=== PATIENT | female | born 1975 | race Caucasian/White ===

== ENCOUNTER 2017-07-02 09:04 | Inpatient (IN) ==
[2017-07-02 10:13] LABS: Basophils % 0.4 % (0.0-0.8); Eosinophils # 0.1 10*3/uL (0.0-0.87); Eosinophils % 0.9 % (0.00-10.9); Hematocrit 19.6 VOL% (35.7-47.0); Immature Granulocytes % 4.6 %; Immature Granulocytes Absolute 0.35 #; Lymphocytes # 2.3 10*3/uL (1.4-4.0); Lymphocytes % 30.2 % (21.3-54.2); Mean Corpuscular HGB Conc 31.6 GM/DL (32-36); Mean Corpuscular Hemoglobin 28 PG (27-34); Mean Corpuscular Volume 89.5 FL (87-102); Monocytes # 0.4 10*3/uL (0.11-0.8); NRBC # 0.53 10*3/uL; Neutrophils # 4.4 10*3/uL (1.4-7.4); Neutrophils % 58.9 % (38.7-73.9); Platelet Count 223 T/CUMM (130-400); Red Blood Count 2.19 MC/CUMM (3.8-5.5); Red Cell Distribution Width 17.2 % (9.3-17.3); White Blood Count 7.5 T/CUMM (4-12)
[2017-07-02 10:19] LABS: Hemoglobin 6.2 GM/DL (12.0-16.0)
[2017-07-02 10:29] LABS: PT Patient Result 10.5 SECS; Partial Thromboplastin Time 23.1 SECS (0-40)
[2017-07-02 10:39] LABS: Apearance,Urine Slightly Hazy (Clear); Bilirubin,Urine Negative (Negative); Blood, Urine Large mg/dL (Negative); Glucose,Urine (UA) 50 mg/dL (Negative); Ketones,Urine 5 mg/dL (Negative); Mucus,Urine Occasional /LPF (Occasional); Nitrite,Urine Negative (Negative); Protein,Urine 100 MG/DL; RBC,Urine 2435 /HPF (0-4); Squamous Epithelial Cell,Urine Occasional /HPF (0-10); Urine Color Yellow (Yellow); Urine Specific Gravity 1.023 (1.001-1.035); Urine Urobilinogen < 2.0 EU/DL (0.2-1.0)
[2017-07-02 10:53] LABS: Free T4 (Free Thyroxine) 0.97 NG/DL (0.76-1.46); Thyroid Stimulating Hormone 4.66 uIU/ml (0.358-3.74)
[2017-07-02 11:00] LABS: Albumin 3.5 G/DL (3.4-5.0); Calcium 8.1 MG/DL (8.5-10.1); Total Protein 6.5 G/DL (6.4-8.3)
[2017-07-02] MEDS ORDERED: SODIUM CHLORIDE 0.9% 1,000 ML IV STA (11:00)
[2017-07-02 11:10] LABS: % Iron Saturation 8.5 % (18-50); Ferritin 48.4 ng/ml (8-252)
[2017-07-02 11:22] LABS: Folate 11.6 NG/ML (5.4-24.0)
[2017-07-02] MEDS: SODIUM CHLORIDE 0.9% 1,000 ML IV SCH (13:05)
[2017-07-02] MEDS ORDERED: ACETAMINOPHEN 325 MG TABLET PO PRN (13:05)
[2017-07-02] MEDS ORDERED: SODIUM CHLORIDE 0.9% 250 ML IV PRN ×2 (13:05→14:35)
[2017-07-02] MEDS ORDERED: ONDANSETRON 4 MG/2 ML VIAL IV PRN (13:05)
[2017-07-02] MEDS: INSULIN LISPRO 100 UNIT/ML SUBCUT SCH (21:47)
[2017-07-02] MEDS: DOCUSATE SODIUM 100 MG CAPSULE PO SCH (21:48)
[2017-07-02 22:38] LABS: Hematocrit 24.7 VOL% (35.7-47.0); Hemoglobin 8.3 GM/DL (12.0-16.0)
[2017-07-03 00:43] LABS: Hematocrit 23.6 VOL% (35.7-47.0); Hemoglobin 7.8 GM/DL (12.0-16.0)
[2017-07-03] MEDS: SODIUM CHLORIDE 0.9% 1,000 ML IV SCH ×3 (01:08→14:20)
[2017-07-03 05:09] LABS: Basophils % 0.4 % (0.0-0.8); Eosinophils # 0.1 10*3/uL (0.0-0.87); Eosinophils % 0.9 % (0.00-10.9); Hematocrit 22.5 VOL% (35.7-47.0); Hemoglobin 7.2 GM/DL (12.0-16.0); Immature Granulocytes % 4.1 %; Immature Granulocytes Absolute 0.37 #; Lymphocytes # 2.8 10*3/uL (1.4-4.0); Lymphocytes % 30.7 % (21.3-54.2); Mean Corpuscular Hemoglobin 29 PG (27-34); Mean Corpuscular Volume 88.9 FL (87-102); Mean Platelet Volume 10.1 FL (9.6-12.0); Monocytes # 0.5 10*3/uL (0.11-0.8); Monocytes % 5.2 % (1.7-12.7); NRBC # 0.53 10*3/uL; Neutrophils # 5.3 10*3/uL (1.4-7.4); Neutrophils % 58.7 % (38.7-73.9); Platelet Count 219 T/CUMM (130-400); Red Blood Count 2.53 MC/CUMM (3.8-5.5); Red Cell Distribution Width 16.5 % (9.3-17.3); White Blood Count 9.1 T/CUMM (4-12)
[2017-07-03 05:42] LABS: Calcium 7.7 MG/DL (8.5-10.1); Magnesium 2.4 MG/DL (1.8-2.4); Osmolality,Calculated 276.8 MOS/KG (273-304); Potassium 4.6 MMOL/L (3.5-5.1)
[2017-07-03] MEDS ORDERED: sitaGLIPtin 25 MG TABLET PO SCH (09:00)
[2017-07-03] MEDS: DOCUSATE SODIUM 100 MG CAPSULE PO SCH ×3 (10:16→21:42)
[2017-07-03] MEDS: metFORMIN 500 MG TABLET PO SCH ×2 (10:16→13:43)
[2017-07-03] MEDS: PRAVASTATIN 40 MG TABLET PO SCH ×2 (10:17→13:43)
[2017-07-03] MEDS: INSULIN LISPRO 100 UNIT/ML SUBCUT SCH ×4 (10:17→21:42)
[2017-07-03] MEDS: ESCITALOPRAM 10 MG TABLET PO SCH ×2 (10:17→13:43)
[2017-07-03] MEDS: PANTOPRAZOLE 40 MG TABLET PO SCH ×2 (10:18→13:43)
[2017-07-03] MEDS ORDERED: medroxyPROGESTERone 5 MG TABLET PO SCH (10:30)
[2017-07-03] MEDS: LOSARTAN 25 MG TABLET PO SCH (13:43)
[2017-07-03] MEDS: FERROUS SULFATE 325 MG TABLET PO SCH (13:43)
[2017-07-03] MEDS: sitaGLIPtin 25 MG TABLET PO SCH (14:31)
[2017-07-03] MEDS: ESTROGENS(CONJ) 25 MG VIAL IV SCH (17:34)
[2017-07-03 17:58] LABS: Hematocrit 25.7 VOL% (35.7-47.0); Hemoglobin 8.5 GM/DL (12.0-16.0)
[2017-07-04] MEDS: SODIUM CHLORIDE 0.9% 1,000 ML IV SCH ×6 (00:13→21:00)
[2017-07-04] MEDS: ESTROGENS(CONJ) 25 MG VIAL IV SCH ×2 (00:27→07:59)
[2017-07-04 05:55] LABS: Basophils # 0.1 10*3/uL (0.0-0.2); Basophils % 0.4 % (0.0-0.8); Eosinophils % 0.1 % (0.00-10.9); Hematocrit 19.9 VOL% (35.7-47.0); Immature Granulocytes % 4.7 %; Immature Granulocytes Absolute 0.68 #; Lymphocytes # 2.2 10*3/uL (1.4-4.0); Lymphocytes % 15.5 % (21.3-54.2); Mean Corpuscular HGB Conc 32.2 GM/DL (32-36); Mean Corpuscular Hemoglobin 27 PG (27-34); Mean Corpuscular Volume 84.7 FL (87-102); Mean Platelet Volume 10.5 FL (9.6-12.0); Monocytes # 0.6 10*3/uL (0.11-0.8); Monocytes % 4.4 % (1.7-12.7); NRBC # 1.13 10*3/uL; Neutrophils # 10.8 10*3/uL (1.4-7.4); Neutrophils % 74.9 % (38.7-73.9); Platelet Count 230 T/CUMM (130-400); Red Blood Count 2.35 MC/CUMM (3.8-5.5); Red Cell Distribution Width 18.5 % (9.3-17.3); White Blood Count 14.4 T/CUMM (4-12)
[2017-07-04 06:11] LABS: Hemoglobin 6.4 GM/DL (12.0-16.0)
[2017-07-04 06:14] LABS: Giant Platelets Few; Hypochromasia 1+; Macrocytosis Slight; Ovalocytes Slight; Platelet Estimate Adequate; Polychromasia Slight
[2017-07-04 06:21] LABS: Calcium 7.4 MG/DL (8.5-10.1); Osmolality,Calculated 276.1 MOS/KG (273-304); Potassium 4.1 MMOL/L (3.5-5.1)
[2017-07-04] MEDS ORDERED: SODIUM CHLORIDE 0.9% 250 ML IV PRN (06:51)
[2017-07-04] MEDS ORDERED: medroxyPROGESTERone 5 MG TABLET PO SCH (09:00)
[2017-07-04] MEDS: LOSARTAN 25 MG TABLET PO SCH (09:51)
[2017-07-04] MEDS: metFORMIN 500 MG TABLET PO SCH (09:51)
[2017-07-04] MEDS: ESCITALOPRAM 10 MG TABLET PO SCH (09:51)
[2017-07-04] MEDS: PANTOPRAZOLE 40 MG TABLET PO SCH (09:51)
[2017-07-04] MEDS: sitaGLIPtin 25 MG TABLET PO SCH (09:51)
[2017-07-04] MEDS: PRAVASTATIN 40 MG TABLET PO SCH (09:51)
[2017-07-04] MEDS: DOCUSATE SODIUM 100 MG CAPSULE PO SCH ×2 (09:51→22:22)
[2017-07-04] MEDS: FERROUS SULFATE 325 MG TABLET PO SCH (09:51)
[2017-07-04] MEDS: INSULIN LISPRO 100 UNIT/ML SUBCUT SCH ×4 (09:52→22:22)
[2017-07-04] MEDS: medroxyPROGESTERone 5 MG TABLET PO SCH (15:07)
[2017-07-04 18:57] LABS: Hematocrit 24.1 VOL% (35.7-47.0)
[2017-07-04 18:58] LABS: Hemoglobin 8.2 GM/DL (12.0-16.0)
[2017-07-04 20:34] LABS: Hematocrit 23.7 VOL% (35.7-47.0); Hemoglobin 8.1 GM/DL (12.0-16.0)
[2017-07-05] MEDS: SODIUM CHLORIDE 0.9% 1,000 ML IV SCH ×4 (01:14→21:14)
[2017-07-05 03:10] LABS: Basophils % 0.3 % (0.0-0.8); Eosinophils % 0.2 % (0.00-10.9); Hemoglobin 7.3 GM/DL (12.0-16.0); Immature Granulocytes % 3.8 %; Immature Granulocytes Absolute 0.51 #; Lymphocytes # 2.7 10*3/uL (1.4-4.0); Lymphocytes % 19.9 % (21.3-54.2); Mean Corpuscular HGB Conc 33.2 GM/DL (32-36); Mean Corpuscular Hemoglobin 28 PG (27-34); Mean Platelet Volume 10.1 FL (9.6-12.0); Monocytes # 0.8 10*3/uL (0.11-0.8); NRBC # 1.15 10*3/uL; Neutrophils # 9.5 10*3/uL (1.4-7.4); Neutrophils % 69.8 % (38.7-73.9); Platelet Count 178 T/CUMM (130-400); Red Blood Count 2.62 MC/CUMM (3.8-5.5); Red Cell Distribution Width 18.6 % (9.3-17.3); White Blood Count 13.6 T/CUMM (4-12)
[2017-07-05 03:12] LABS: Hematocrit 22.1 VOL% (35.7-47.0); Hemoglobin 7.3 GM/DL (12.0-16.0)
[2017-07-05 03:46] LABS: Osmolality,Calculated 275.7 MOS/KG (273-304); Potassium 4.2 MMOL/L (3.5-5.1)
[2017-07-05 08:11] LABS: Hematocrit 18.4 VOL% (35.7-47.0)
[2017-07-05] MEDS ORDERED: SODIUM CHLORIDE 0.9% 250 ML IV PRN ×2 (09:44→22:52)
[2017-07-05] MEDS: DOCUSATE SODIUM 100 MG CAPSULE PO SCH ×2 (10:08→21:12)
[2017-07-05] MEDS: medroxyPROGESTERone 5 MG TABLET PO SCH (10:08)
[2017-07-05] MEDS: sitaGLIPtin 25 MG TABLET PO SCH (10:08)
[2017-07-05] MEDS: FERROUS SULFATE 325 MG TABLET PO SCH (10:08)
[2017-07-05] MEDS: metFORMIN 500 MG TABLET PO SCH (10:08)
[2017-07-05] MEDS: PRAVASTATIN 40 MG TABLET PO SCH (10:08)
[2017-07-05] MEDS: LOSARTAN 25 MG TABLET PO SCH (10:09)
[2017-07-05] MEDS: ESCITALOPRAM 10 MG TABLET PO SCH (10:09)
[2017-07-05] MEDS: PANTOPRAZOLE 40 MG TABLET PO SCH (10:10)
[2017-07-05] MEDS: INSULIN LISPRO 100 UNIT/ML SUBCUT SCH ×4 (10:10→21:11)
[2017-07-05] MEDS ORDERED: diphenhydrAMINE CAP 50 MG CAPSULE PO ONE (10:25)
[2017-07-05 20:34] LABS: Hematocrit 24.3 VOL% (35.7-47.0); Hemoglobin 8.1 GM/DL (12.0-16.0)
[2017-07-06] MEDS: TRANEXAMIC ACID IV SCH ×4 (00:19→23:53)
[2017-07-06] MEDS: SODIUM CHLORIDE 0.9% IV SCH ×4 (00:19→23:53)
[2017-07-06] MEDS: SODIUM CHLORIDE 0.9% 1,000 ML IV SCH ×3 (04:22→14:18)
[2017-07-06] MEDS: INSULIN LISPRO 100 UNIT/ML SUBCUT SCH ×4 (07:53→21:55)
[2017-07-06 08:37] LABS: Hematocrit 26.1 VOL% (35.7-47.0); Hemoglobin 8.9 GM/DL (12.0-16.0)
[2017-07-06] MEDS: sitaGLIPtin 25 MG TABLET PO SCH (08:39)
[2017-07-06] MEDS: ESCITALOPRAM 10 MG TABLET PO SCH (08:39)
[2017-07-06] MEDS: DOCUSATE SODIUM 100 MG CAPSULE PO SCH ×2 (08:39→21:54)
[2017-07-06] MEDS: metFORMIN 500 MG TABLET PO SCH (08:40)
[2017-07-06] MEDS: PRAVASTATIN 40 MG TABLET PO SCH (08:40)
[2017-07-06] MEDS: LOSARTAN 25 MG TABLET PO SCH (08:40)
[2017-07-06] MEDS: FERROUS SULFATE 325 MG TABLET PO SCH (08:40)
[2017-07-06] MEDS: PANTOPRAZOLE 40 MG TABLET PO SCH (08:40)
[2017-07-06] MEDS: medroxyPROGESTERone 5 MG TABLET PO SCH (08:46)
[2017-07-06 15:17] LABS: Hematocrit 24.8 VOL% (35.7-47.0); Hemoglobin 8.5 GM/DL (12.0-16.0)
[2017-07-07] MEDS: INSULIN LISPRO 100 UNIT/ML SUBCUT SCH ×4 (07:31→20:48)
[2017-07-07] MEDS ORDERED: CALCIUM CHLORIDE 1,000 MG in SODIUM CHLORIDE 0.9% 100 ML IV ONE (08:15)
[2017-07-07] MEDS: TRANEXAMIC ACID IV SCH ×3 (09:05→20:48)
[2017-07-07] MEDS: SODIUM CHLORIDE 0.9% IV SCH ×3 (09:05→20:48)
[2017-07-07] MEDS: metFORMIN 500 MG TABLET PO SCH (09:31)
[2017-07-07 10:25] LABS: Basophils % 0.4 % (0.0-0.8); Eosinophils # 0.1 10*3/uL (0.0-0.87); Hematocrit 22.8 VOL% (35.7-47.0); Immature Granulocytes % 2.3 %; Immature Granulocytes Absolute 0.13 #; Lymphocytes # 1.4 10*3/uL (1.4-4.0); Lymphocytes % 25.3 % (21.3-54.2); Mean Corpuscular HGB Conc 33.3 GM/DL (32-36); Mean Corpuscular Hemoglobin 29 PG (27-34); Mean Corpuscular Volume 87.7 FL (87-102); Mean Platelet Volume 10.3 FL (9.6-12.0); Monocytes # 0.4 10*3/uL (0.11-0.8); Monocytes % 6.4 % (1.7-12.7); NRBC # 0.27 10*3/uL; Neutrophils # 3.6 10*3/uL (1.4-7.4); Neutrophils % 63.6 % (38.7-73.9); Red Cell Distribution Width 16.9 % (9.3-17.3)
[2017-07-07 10:26] LABS: Hemoglobin 7.6 GM/DL (12.0-16.0); White Blood Count 5.6 T/CUMM (4-12)
[2017-07-07 10:27] LABS: Platelet Count 131 T/CUMM (130-400)
[2017-07-07] MEDS: FERROUS SULFATE 325 MG TABLET PO SCH (10:30)
[2017-07-07] MEDS: sitaGLIPtin 25 MG TABLET PO SCH (10:30)
[2017-07-07] MEDS: medroxyPROGESTERone 5 MG TABLET PO SCH (10:30)
[2017-07-07] MEDS: LOSARTAN 25 MG TABLET PO SCH (10:31)
[2017-07-07] MEDS: ESCITALOPRAM 10 MG TABLET PO SCH (10:31)
[2017-07-07] MEDS: PANTOPRAZOLE 40 MG TABLET PO SCH (10:31)
[2017-07-07] MEDS: PRAVASTATIN 40 MG TABLET PO SCH (10:31)
[2017-07-07 10:48] LABS: Calcium 7.8 MG/DL (8.5-10.1); Osmolality,Calculated 274.5 MOS/KG (273-304)
[2017-07-07] MEDS: DOCUSATE SODIUM 100 MG CAPSULE PO SCH ×2 (13:04→20:48)
[2017-07-07] MEDS: SODIUM CHLORIDE 0.9% 1,000 ML IV SCH (17:48)
[2017-07-07 20:45] LABS: Hemoglobin 9.6 GM/DL (12.0-16.0)
[2017-07-08 05:53] LABS: Basophils % 0.5 % (0.0-0.8); Eosinophils # 0.2 10*3/uL (0.0-0.87); Eosinophils % 2.9 % (0.00-10.9); Hemoglobin 8.8 GM/DL (12.0-16.0); Immature Granulocytes % 1.6 %; Lymphocytes % 32.2 % (21.3-54.2); Mean Corpuscular HGB Conc 32.6 GM/DL (32-36); Mean Corpuscular Hemoglobin 28 PG (27-34); Mean Corpuscular Volume 87.1 FL (87-102); Mean Platelet Volume 10.5 FL (9.6-12.0); Monocytes # 0.4 10*3/uL (0.11-0.8); Monocytes % 6.2 % (1.7-12.7); NRBC # 0.25 10*3/uL; Neutrophils # 3.5 10*3/uL (1.4-7.4); Neutrophils % 56.6 % (38.7-73.9); Platelet Count 135 T/CUMM (130-400); Red Cell Distribution Width 16.6 % (9.3-17.3); White Blood Count 6.2 T/CUMM (4-12)
[2017-07-08] MEDS ORDERED: ceFAZolin 2,000 MG in PREMIX 1 EACH IV ONE (06:00)
[2017-07-08] MEDS ORDERED: FAMOTIDINE 20 MG/2 ML VIAL IV ONE (06:00)
[2017-07-08] MEDS ORDERED: SCOPOLAMINE 1.5 MG PATCH TRANSDERM ONE (06:00)
[2017-07-08 06:27] LABS: Albumin 2.4 G/DL (3.4-5.0); Bilirubin,Total 1.7 MG/DL (0.2-1.0); Calcium 7.9 MG/DL (8.5-10.1); Osmolality,Calculated 277.4 MOS/KG (273-304); Potassium 4.2 MMOL/L (3.5-5.1)
[2017-07-08] MEDS: INSULIN LISPRO 100 UNIT/ML SUBCUT SCH ×4 (07:30→20:49)
[2017-07-08] MEDS ORDERED: MICROFIBRILLAR COLLAGEN POWDER 1 GM CAN TOP ONE (08:12)
[2017-07-08] MEDS: sitaGLIPtin 25 MG TABLET PO SCH (09:16)
[2017-07-08] MEDS: LOSARTAN 25 MG TABLET PO SCH (09:16)
[2017-07-08] MEDS: metFORMIN 500 MG TABLET PO SCH (09:16)
[2017-07-08] MEDS: DOCUSATE SODIUM 100 MG CAPSULE PO SCH (09:16)
[2017-07-08] MEDS: FERROUS SULFATE 325 MG TABLET PO SCH (09:16)
[2017-07-08] MEDS: PANTOPRAZOLE 40 MG TABLET PO SCH (09:19)
[2017-07-08] MEDS: medroxyPROGESTERone 5 MG TABLET PO SCH (09:19)
[2017-07-08] MEDS: PRAVASTATIN 40 MG TABLET PO SCH (09:19)
[2017-07-08] MEDS: ESCITALOPRAM 10 MG TABLET PO SCH (09:19)
[2017-07-08] MEDS: TRANEXAMIC ACID IV SCH (09:21)
[2017-07-08] MEDS: SODIUM CHLORIDE 0.9% IV SCH (09:21)
[2017-07-08] MEDS ORDERED: DOCUSATE SODIUM 100 MG CAPSULE PO PRN (10:56)
[2017-07-08] MEDS ORDERED: ACETAMINOPHEN 325 MG TABLET PO PRN (10:56)
[2017-07-08] MEDS ORDERED: BISACODYL 10 MG SUPP RECTAL PRN (10:56)
[2017-07-08] MEDS ORDERED: ONDANSETRON 4 MG/2 ML VIAL IV PRN ×2 (10:56→11:10)
[2017-07-08] MEDS ORDERED: IBUPROFEN 800 MG TABLET PO PRN (10:56)
[2017-07-08] MEDS ORDERED: DEXTROSE 50% 25 GM/50 ML VIAL IV PRN (10:56)
[2017-07-08] MEDS ORDERED: BENZOCAINE/MENTHOL LOZENGE 18/BOX PO PRN (10:56)
[2017-07-08] MEDS ORDERED: GLUCAGON 1 MG VIAL IM PRN (10:56)
[2017-07-08] MEDS ORDERED: MAGNESIUM HYDROXIDE SUSP 30 ML UDCUP PO PRN (10:56)
[2017-07-08] MEDS ORDERED: NALOXONE 0.4 MG/ML VIAL IV PRN (11:01)
[2017-07-08] MEDS ORDERED: HYDROmorphone 2 MG/1 ML VIAL IV PRN (11:10)
[2017-07-08] MEDS ORDERED: PROPOFOL 200 MG/20 ML VIAL IV ONE (11:11)
[2017-07-08] MEDS ORDERED: ACETAMINOPHEN 1,000 MG/100 ML VIAL IV ONE (11:12)
[2017-07-08] MEDS ORDERED: ONDANSETRON 4 MG/2 ML VIAL ONE (11:12)
[2017-07-08] MEDS ORDERED: NEOSTIGMINE 10 MG/10 ML VIAL ONE (11:12)
[2017-07-08] MEDS ORDERED: HYDROmorphone 2 MG/1 ML VIAL ONE (11:12)
[2017-07-08] MEDS ORDERED: ePHEDrine 50 MG/ML AMP ONE (11:12)
[2017-07-08] MEDS ORDERED: fentaNYL 100 MCG/2 ML VIAL ONE (11:12)
[2017-07-08] MEDS ORDERED: GLYCOPYRROLATE 0.4 MG/2 ML VIAL ONE (11:12)
[2017-07-08] MEDS ORDERED: MIDAZOLAM 2 MG/2 ML VIAL ONE (11:12)
[2017-07-08] MEDS ORDERED: LACTATED RINGERS 1,000 ML IV ONE (11:13)
[2017-07-08] MEDS ORDERED: ROCURONIUM 100 MG/10 ML VIAL IV ONE (11:13)
[2017-07-08] MEDS ORDERED: SODIUM CHLORIDE 0.9% 1,000 ML IV ONE (11:13)
[2017-07-08] MEDS ORDERED: SUCCINYLCHOLINE 200 MG/10 ML VIAL ONE (11:13)
[2017-07-08] MEDS ORDERED: HYDROmorphone PCA 30 MG/30 ML SYRINGE IV ONE (11:16)
[2017-07-08] MEDS ORDERED: LACTATED RINGERS 1,000 ML IV SCH (11:30)
[2017-07-08] MEDS ORDERED: HYDROmorphone PCA 30 MG/30 ML SYRINGE IV SCH (11:30)
[2017-07-08 11:49] LABS: Apearance,Urine CLEAR (Clear); Bilirubin,Urine Negative (Negative); Blood, Urine Negative (Negative); Glucose,Urine (UA) Negative (Negative); Ketones,Urine 20 mg/dL (Negative); Mucus,Urine Occasional /LPF (Occasional); Nitrite,Urine Negative (Negative); Protein,Urine Negative; RBC,Urine 6 /HPF (0-4); Urine Color Straw (Yellow); Urine Specific Gravity 1.012 (1.001-1.035); Urine Urobilinogen < 2.0 EU/DL (0.2-1.0)
[2017-07-08] MEDS: LACTATED RINGERS 1,000 ML IV SCH ×2 (18:07→18:54)
[2017-07-09] MEDS: LACTATED RINGERS 1,000 ML IV SCH ×3 (01:51→13:50)
[2017-07-09 05:33] LABS: Basophils % 0.3 % (0.0-0.8); Eosinophils % 0.4 % (0.00-10.9); Hematocrit 29.4 VOL% (35.7-47.0); Hemoglobin 9.7 GM/DL (12.0-16.0); Immature Granulocytes % 1.8 %; Immature Granulocytes Absolute 0.13 #; Lymphocytes # 1.2 10*3/uL (1.4-4.0); Lymphocytes % 17.3 % (21.3-54.2); Mean Corpuscular Hemoglobin 29 PG (27-34); Mean Platelet Volume 10.4 FL (9.6-12.0); Monocytes # 0.4 10*3/uL (0.11-0.8); Monocytes % 5.8 % (1.7-12.7); NRBC # 0.15 10*3/uL; Neutrophils # 5.2 10*3/uL (1.4-7.4); Neutrophils % 74.4 % (38.7-73.9); Platelet Count 138 T/CUMM (130-400); Red Blood Count 3.38 MC/CUMM (3.8-5.5); Red Cell Distribution Width 16.2 % (9.3-17.3); White Blood Count 7.1 T/CUMM (4-12)
[2017-07-09 05:59] LABS: Potassium 4.4 MMOL/L (3.5-5.1)
[2017-07-09] MEDS: INSULIN LISPRO 100 UNIT/ML SUBCUT SCH ×4 (07:40→20:35)
[2017-07-09] MEDS ORDERED: oxyCODONE/ACETAMINOPHEN 5-325 MG TABLET PO PRN (08:56)
[2017-07-09] MEDS ORDERED: MEPERIDINE 50 MG/1 ML VIAL IV PRN (08:57)
[2017-07-09] MEDS: LOSARTAN 25 MG TABLET PO SCH (13:28)
[2017-07-09] MEDS: PRAVASTATIN 40 MG TABLET PO SCH (13:28)
[2017-07-09] MEDS: PANTOPRAZOLE 40 MG TABLET PO SCH (13:28)
[2017-07-09] MEDS: ESCITALOPRAM 10 MG TABLET PO SCH (13:28)
[2017-07-09] MEDS: sitaGLIPtin 25 MG TABLET PO SCH (13:28)
[2017-07-09] MEDS: FERROUS SULFATE 325 MG TABLET PO SCH (13:28)
[2017-07-10] MEDS: LACTATED RINGERS 1,000 ML IV SCH ×2 (04:49→09:34)
[2017-07-10 07:13] LABS: Calcium 8.1 MG/DL (8.5-10.1); Osmolality,Calculated 273.5 MOS/KG (273-304); Potassium 3.8 MMOL/L (3.5-5.1)
[2017-07-10 07:28] LABS: Albumin 2.6 G/DL (3.4-5.0); Bilirubin,Total 1.4 MG/DL (0.2-1.0); Calcium 8.2 MG/DL (8.5-10.1); Magnesium 2.8 MG/DL (1.8-2.4); Osmolality,Calculated 273.5 MOS/KG (273-304); Potassium 3.8 MMOL/L (3.5-5.1); Total Protein 5.4 G/DL (6.4-8.3)
[2017-07-10 07:30] LABS: Basophils % 0.3 % (0.0-0.8); Eosinophils # 0.1 10*3/uL (0.0-0.87); Eosinophils % 1.4 % (0.00-10.9); Hemoglobin 10.1 GM/DL (12.0-16.0); Immature Granulocytes % 1.5 %; Immature Granulocytes Absolute 0.11 #; Lymphocytes # 1.3 10*3/uL (1.4-4.0); Lymphocytes % 17.7 % (21.3-54.2); Mean Corpuscular HGB Conc 32.6 GM/DL (32-36); Mean Corpuscular Hemoglobin 28 PG (27-34); Mean Corpuscular Volume 86.4 FL (87-102); Mean Platelet Volume 9.8 FL (9.6-12.0); Monocytes # 0.5 10*3/uL (0.11-0.8); Monocytes % 6.8 % (1.7-12.7); NRBC # 0.13 10*3/uL; Neutrophils # 5.2 10*3/uL (1.4-7.4); Neutrophils % 72.3 % (38.7-73.9); Platelet Count 170 T/CUMM (130-400); Red Blood Count 3.59 MC/CUMM (3.8-5.5); White Blood Count 7.2 T/CUMM (4-12)
[2017-07-10] MEDS: INSULIN LISPRO 100 UNIT/ML SUBCUT SCH (07:40)
[2017-07-10 08:05] VITALS: BP 107/48
[2017-07-10] MEDS: PRAVASTATIN 40 MG TABLET PO SCH (08:28)
[2017-07-10] MEDS: ESCITALOPRAM 10 MG TABLET PO SCH (08:28)
[2017-07-10] MEDS: LOSARTAN 25 MG TABLET PO SCH (08:28)
[2017-07-10] MEDS: sitaGLIPtin 25 MG TABLET PO SCH (08:28)
[2017-07-10] MEDS: FERROUS SULFATE 325 MG TABLET PO SCH (08:28)
[2017-07-10] MEDS: PANTOPRAZOLE 40 MG TABLET PO SCH (08:29)
[2017-07-10] MEDS ORDERED: IBUPROFEN 800 MG TABLET PO PRN (10:44)
== END 2017-07-10 11:40 | disposition home or self-care (01) | DRG 742 ==
LOC: N.ED 09:04 → N.EDINP 10:56 → N.TELES 12:55 → N.4E 07-06 13:49
PROVIDERS: ADMIT Family Medicine; ATTEND Family Medicine